=== PATIENT | female | born 1955 ===

== ENCOUNTER 2017-07-25 07:35 | Inpatient (IN) | payer OTHER ==
[~2017-07-25] VITALS: Ht 160 cm; Wt 66.7 kg
[2017-07-25] MEDS ORDERED: ZOCOR20 MG (07:45)
[2017-07-25] MEDS ORDERED: EPANED1 MG/1 M1 (07:45)
[2017-07-25] MEDS ORDERED: PNEU16DI2 (07:45)
[2017-08-01] MEDS ORDERED: ULTRACET PO (07:22)
[2017-08-01] MEDS ORDERED: INTESTINEX680 M1 PO (07:22)
[2017-08-01] MEDS ORDERED: PYRIDOXINE HCL100 M1 PO (14:25)
[2017-08-01] MEDS ORDERED: ZOCOR20 MG PO (14:25)
[2017-08-01] MEDS ORDERED: ENALAPRIL MALE2.5 MG PO (14:25)
[2017-08-01] MEDS ORDERED: Intestinex CAP PO (14:25)
[2017-08-01] MEDS ORDERED: Neurin-Sl Tablet Sl SL (14:25)
[2017-08-01] MEDS ORDERED: BACTRIM DS TAB1 EACH PO (14:25)
[2017-08-01] MEDS ORDERED: OXYC1TAB9 PO (14:25)
== END 2017-08-01 15:47 | disposition home or self-care (01) | DRG 330 ==
LOC: ER 07:35 → MEDI 11:02 → SURG 11:02 → SEC-K 11:02 → MEDI 14:47 → SURG 07-28 19:52
PROVIDERS: Surgery
PROC: 30233N1 Transfusion of Nonautologous Red Blood Cells into Peripheral Vein, Percutaneous Approach (ICD-10-PCS; 2017-07-26)
PROC: 07TC4ZZ Resection of Pelvis Lymphatic, Percutaneous Endoscopic Approach (ICD-10-PCS; 2017-07-28)
PROC: 0DBU4ZZ Excision of Omentum, Percutaneous Endoscopic Approach (ICD-10-PCS; 2017-07-28)
PROC: 0DTF4ZZ Resection of Right Large Intestine, Percutaneous Endoscopic Approach (ICD-10-PCS; principal; 2017-07-28 15:00)
PROC: 4A033R1 Measurement of Arterial Saturation, Peripheral, Percutaneous Approach (ICD-10-PCS; 2017-07-29)
PROC: BT43ZZZ Ultrasonography of Bilateral Kidneys (ICD-10-PCS; 2017-07-30)
DX: C18.2 Malignant neoplasm of ascending colon (principal); L03.113 Cellulitis of right upper limb; N13.2 Hydronephrosis with renal and ureteral calculous obstruction; D50.0 Iron deficiency anemia secondary to blood loss (chronic); I11.9 Hypertensive heart disease without heart failure; E78.00 Pure hypercholesterolemia, unspecified; R59.0 Localized enlarged lymph nodes

== ENCOUNTER 2017-08-12 05:30 | Day surgery (SDC) | payer OTHER ==
[~2017-08-12 05:30] MED LIST: BACTRIM DS TAB1 EACH PO; ENALAPRIL MALE2.5 MG PO; EPANED1 MG/1 M1; INTESTINEX680 M1 PO; Intestinex CAP PO; Neurin-Sl Tablet Sl SL; OXYC1TAB9 PO; PNEU16DI2; PYRIDOXINE HCL100 M1 PO; ULTRACET PO; ZOCOR20 MG; ZOCOR20 MG PO
[2017-08-12] MEDS ORDERED: KEFLEX500 MG PO (12:12)
[2017-08-12] MEDS ORDERED: URIN D.S. TABL1 EACH PO (12:12)
[2017-08-12] MEDS ORDERED: ULTRACET PO (12:12)
== END 2017-08-12 16:00 | disposition home or self-care (01) ==
LOC: CIR.AMB 05:30
DX: N13.2 Hydronephrosis with renal and ureteral calculous obstruction (principal)